=== PATIENT | male | born 1950 | race Asian ===

== ENCOUNTER → 2018-12-14 15:31 | Outpatient (CLI) | payer OTHER, SELFPAY ==
--- NOTE | 2018-12-14 | DI.ECHO.S_ITS ---
[facility]---------[facility] +---------+ : : [address] : : : : [id number] : : : : Phone: [phone] +---------+ Echocardiogram Report + + :Name: PARVEEN BAUTISTA Study Date: 12/14/2018 Height: 66 in : :[facility] Weight: 169 lb : : Gender: Male BSA: 1.9 m2 : :: 1950 Age: 68 yrs BP: 158/78 mmHg: :Reason For Study: QTC : : Performed By: Lena Oliveira : :Referring: UNSPECIFIED : + + Interpretation Summary Afib with slow ventricular response. Pt is V paced at 50 bpm. Normal LV size, mild concentric LVH; normal wall motion and LV systolic function. There is expected dyssynchrony given RV pacing. EF is estimated at 50-55%. Severe biatrial enlargement. Aortic valve leaflets are mildly thickened and calcified. There is aortic sclerosis without stenosis. There is trace aortic regurgitation. Tricuspid valve is crossed by a pacing lead with moderate associated tricuspid regurgitation. Estimated PA systolic pressure is 35 mm Hg assuming RA pressure of 3 mm Hg. Otherwise no significant valvular abnormalities. No prior echo available for comparison. Procedure: A two-dimensional transthoracic echocardiogram with color flow and Doppler was performed. The study quality was technically adequate. There is no prior echocardiogram noted for this patient. Left Ventricle: The left ventricle is normal in size. Left ventricular wall thickness is mildly increased. The ejection fraction is estimated to be 50- 55%. Apical wall motion abnormality may reflect pacemaker activation. Diastolic function could not be accurately assessed due to paced rhythm. Right Ventricle: Borderline right ventricular enlargement. There is a pacemaker lead in the right ventricle. The right ventricular systolic function is normal. Atria: The left atrium is severely dilated. The right atrium is severely dilated. There is a catheter/pacemaker lead seen in the right atrium. The interatrial septum is intact with no evidence for an atrial septal defect. Mitral Valve: The mitral valve leaflets appear mildly thickened, but open well. There is mild mitral annular calcification. There is mild mitral regurgitation. Aortic Valve: The aortic valve is trileaflet. There is mildly reduced leaflet mobility. The aortic valve is mildly calcified. There is trace aortic regurgitation. Tricuspid Valve: The tricuspid valve leaflets are thin and pliable. There is mild to moderate tricuspid regurgitation. The right ventricular systolic pressure is estimated to be at least 35 mmHg based on an estimated right atrial pressure of 3 mm Hg. Pulmonic Valve: The pulmonic valve is not well seen, but is grossly normal. There is trace pulmonic regurgitation. Great Vessels: The aortic root is normal size. The dimensions of the ascending aorta are normal. The aortic arch is normal in size. The IVC is of normal diameter and collapses greater than 50% with a sniff. This suggests a low right atrial pressure of 3 mm Hg. Pericardium/ Pleura There is no pericardial effusion. There is no pleural effusion. MMode/2D Measurements & Calculations LVIDd: 4.7 cm Ao root diam: 3.0 cm LVIDs: 3.2 cm Aortic Jxn: 2.6 cm FS: 30.7 % asc Aorta Diam: 3.0 cm EPSS: 1.2 cm Ao Arch Diam (Prox Trans): 2.8 cm IVSd: 1.4 cm LVPWd: 1.2 cm LV castanon. diameter/BSA (cm/m^2): 2.5 LV sys. diameter/BSA (cm/m^2): 1.7 LA dimension: 4.8 cm RA long axis: 6.7 cm LA A2 area: 32.7 cm2 RA area: 31.3 cm2 LA A4 area: 32.6 cm2 RA vol: 123.4 ml LA length (vol): 6.7 cm RA : 66.3 ml/m2 LA vol: 135.1 ml IVC diam: 1.7 cm LA vol index: 72.6 ml/m2 RVDd major: 7.5 cm RVD1 (basal): 4.4 cm RVD2 (mid): 4.2 cm Doppler Measurements & Calculations Ao V2 max: 173.1 cm/sec MV E max sterling: 123.3 cm/sec Ao V2 mean: 114.8 cm/sec MV A max sterling: 31.8 cm/sec Ao max P.0 mmHg MV E/A: 3.9 Ao mean P.1 mmHg Med Peak E' Sterling: 6.5 cm/sec Ao V2 VTI: 37.6 cm E/E' med: 18.9 Lat Peak E' Sterling: 10.2 cm/sec E/E' lat: 12.1 E/e' average: 15.5 MV dec time: 0.21 sec MV P1/2t: 59.6 msec TR max sterling: 282.5 cm/sec MV P1/2t max sterling: 121.9 cm/sec TR max P.9 mmHg MVA(P1/2t): 3.7 cm2 PA V2 max: 83.0 cm/sec PA V2 mean: 53.9 cm/sec PA mean P.4 mmHg PA Accel Time: 0.12 sec Electronically signed by: Lola Duong M.D. on Reading Physician:12/15/2018 05:30 AM
== END ==
PROVIDERS: Visit Provider Internal Medicine Cardiovascular Disease
DX: I08.1 Rheumatic disorders of both mitral and tricuspid valves (principal); I47.1 Supraventricular tachycardia; Z95.0 Presence of cardiac pacemaker
CPT/HCPCS: 93306

== ENCOUNTER → 2020-05-05 08:46 | Outpatient (CLI) | payer OTHER, SELFPAY ==
--- NOTE | 2020-05-05 | DI.ECHO.S_ITS ---
[facility]---------+ [facility] +---------+ : : [address] : : : : [id number] : : : : Phone: [phone] +---------+ Echocardiogram Report + + :Name: PARVEEN BAUTISTA Study Date: 05/05/2020 Height: 66 in : :[facility] ReadingLocation: Weight: 169 lb : : Gender: Male BSA: 1.9 m2 : :: 1950 Age: 69 yrs BP: 181/90 mmHg: :Reason For Study: HEART DISEASE : :Ordering Physician: CANDE, : :PARVEEN Performed By: Kim Aguilar : :Referring: PARVEEN CASTELLON : + + Interpretation Summary 1) Normal left ventricular size with low normal systolic function (EF 50-55%). 2) The right ventricle is normal size. Right ventricular systolic function is mild to moderately reduced. There is a pacemaker lead in the right ventricle. 3) Severe biatrial enlagement. 4) There is mild aortic stenosis (valve area 1.2cm2, mean gradient 13mmHg). 5) There is mild to moderate tricuspid regurgitation. 6) Severe hypertension present during the study (BP 181/90mmHg). 7) Compared to the Echo done 12/14/2018, no significant use. Procedure: A two-dimensional transthoracic echocardiogram with color flow and Doppler was performed. The study quality was technically adequate. Comparison is made with the echocardiogram of . The patient has a paced rhythm. The heart rate ranged between 49-55 bpm during the study. Left Ventricle: The left ventricle is normal in size. There is mild concentric left ventricular hypertrophy. The ejection fraction is estimated to be 50-55%. There is a mild dyssynchronous contraction pattern, consistent with a conduction abnormality. Diastolic function could not be accurately assessed due to paced rhythm. Right Ventricle: There is a pacemaker lead in the right ventricle. The right ventricle is normal size. Right ventricular systolic function is mild to moderately reduced. Atria: The left atrium is severely dilated. The right atrium is severely dilated. There is a catheter/pacemaker lead seen in the right atrium. There is no Doppler evidence for an interatrial shunt. Mitral Valve: The mitral valve is normal in structure and function. There is mild to moderate mitral regurgitation. Aortic Valve: The aortic valve is trileaflet. The aortic valve is mildly calcified. There is mild aortic stenosis. The peak aortic velocity is 2.37 m/sec. The aortic valve mean gradient is 13 mmHg. The calculated aortic valve area is 1.2 cm2. There is mild aortic regurgitation. Tricuspid Valve: The tricuspid valve is normal in structure and function. The right ventricular systolic pressure is estimated to be at least 48 mmHg based on an estimated right atrial pressure of 8 mm Hg. There is mild to moderate tricuspid regurgitation. Pulmonic Valve: The pulmonic valve leaflets are thin and pliable; valve motion is normal. There is mild pulmonic regurgitation. Great Vessels: The aortic root is normal size. The dimensions of the ascending aorta are normal. The IVC is dilated (diameter is greater than 2.1 cm) yet it collapses greater than 50% with a sniff. This suggests a right atrial pressure of 8 mm Hg. Pericardium/ Pleura There is no pericardial effusion. There is no pleural effusion. MMode/2D Measurements & Calculations LVIDd: 5.2 cm LVOT diam: 2.1 cm LVIDs: 3.8 cm Ao root diam: 2.9 cm FS: 27.1 % asc Aorta Diam: 3.3 cm EPSS: 0.98 cm Ao Arch Diam (Prox Trans): 2.6 cm IVSd: 1.4 cm LVPWd: 1.2 cm LV castanon. diameter/BSA (cm/m^2): 2.8 LV sys. diameter/BSA (cm/m^2): 2.0 LA A2 area: 34.2 cm2 RA long axis: 6.8 cm LA A4 area: 31.2 cm2 RA area: 30.2 cm2 LA length (vol): 6.7 cm RA vol: 113.0 ml LA vol: 135.0 ml RA : 60.7 ml/m2 LA vol index: 72.5 ml/m2 IVC diam: 2.2 cm RVD1 (basal): 2.9 cm TAPSE: 1.2 cm Doppler Measurements & Calculations Ao V2 max: 236.5 cm/sec LVOT Max Sterling: 82.1 cm/sec Ao V2 mean: 170.6 cm/sec LV V1 max P.7 mmHg Ao max P.4 mmHg LV V1 VTI: 17.3 cm Ao mean P.3 mmHg KEVIN(I,D): 1.2 cm2 Ao V2 VTI: 52.6 cm KEVIN(V,D): 1.2 cm2 sev ratio: 0.33 KEVIN indexed to BSA (cm^2/m^2): 0.63 MV E max sterling: 107.7 cm/sec TR max sterling: 319.5 cm/sec MV A max sterling: 46.4 cm/sec TR max P.8 mmHg MV E/A: 2.3 PA V2 max: 59.2 cm/sec Med Peak E' Sterling: 5.6 cm/sec PA V2 mean: 42.8 cm/sec E/E' med: 19.1 PA mean P.83 mmHg Lat Peak E' Sterling: 8.2 cm/sec PA pr(Accel): 20.8 mmHg E/E' lat: 13.2 E/e' average: 16.1 MV dec time: 0.13 sec SV(LVOT): 62.0 ml Reading Physician:10:52 AM
== END ==
PROVIDERS: Referring Provider Physician Assistant; Visit Provider Physician Assistant
DX: I08.3 Combined rheumatic disorders of mitral, aortic and tricuspid valves (principal); I10 Essential (primary) hypertension; Z95.0 Presence of cardiac pacemaker
CPT/HCPCS: 93306